=== PATIENT | female | born 1995 | race Caucasian/White ===

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

== ENCOUNTER 2017-09-18 17:53 | Emergency (ER) | payer BC, OTHER ==
[~2017-09-18] VITALS: Ht 160 cm; Wt 44.5 kg
[~2017-09-18 17:53] MED LIST changes: -LIDOCAINE HCL 2% 2 ML VIAL (20MG/ML) ONE; -MIDAZOLAM HCL 1 MG/ML 2ML VIAL ONE; -ONDA4TAB10 SL; -ONDANSETRON INJ 2 MG/ML 2 ML VIAL ONE; -PROPOFOL IV EMULSION 10 MG/ML 20 ML VIAL IV ONE; -SODIUM CHLORIDE 0.9% 500ML 500 ML IV ONE
[2017-09-18 17:56] VITALS: TEMP 37; Ht 160 cm; Wt 44.5 kg
[2017-09-18 19:23] LABS: BASO % 0.3 %; BASO ABS # 0.02 K/uL (0-0.2); EOS % 0.6 %; EOS ABS # 0.05 K/uL (0-0.5); HEMATOCRIT 41.7 % (37-47); IG# 0.01 K/uL (0.00-0.02); LYMPH % 28.3 %; LYMPH ABS # 2.21 K/uL (1.2-3.4); MEAN CELL VOLUME 90.7 fL (80-100); MEAN CORPUSCULAR HEMOGLOBIN 30.4 pg (25-34); MEAN CORPUSCULAR HGB CONC 33.6 g/dl (32-36); MEAN PLATELET VOLUME 10.1 fL (7.4-10.4); MONO % 4.9 %; MONO ABS # 0.38 K/uL (0.11-0.59); NEUT % 65.8 %; NEUT ABS # 5.14 K/uL (1.4-6.5); PLATELET COUNT 221 K/uL (130-400); RED CELL DISTRIBUTION WIDTH CV 12.3 % (11.5-14.5); RED CELL DISTRIBUTION WIDTH SD 40.8 fL (36.4-46.3); WHITE BLOOD COUNT 7.81 K/uL (4.8-10.8)
[2017-09-18 19:41] LABS: ALBUMIN 3.7 gm/dl (3.4-5.0); CALCIUM 8.9 mg/dl (8.5-10.1); CREATININE 0.83 mg/dl (0.60-1.20); POTASSIUM 3.6 mmol/L (3.5-5.1)
[2017-09-18 19:43] LABS: TOTAL PROTEIN 7.8 gm/dl (6.4-8.2)
[2017-09-18] MEDS ORDERED: SODIUM CHLORIDE 0.9% 1000ML 1,000 ML IV STA (19:46)
[2017-09-18] MEDS ORDERED: KETOROLAC TROMETHAMINE 30 MG/ML VIAL IV STA (19:46)
[2017-09-18] MEDS ORDERED: ONDANSETRON INJ 2 MG/ML 2 ML VIAL IV STA (19:46)
[2017-09-18] MEDS ORDERED: AZITHROMYCIN 250 MG TAB PO ONE (20:30)
[2017-09-18] MEDS ORDERED: CEFTRIAXONE SOD 350MG/ML 1 GM VIAL IM ONE (20:30)
[2017-09-18] MEDS ORDERED: METRONIDAZOLE 250 MG TAB PO STA (20:30)
[2017-09-18] MEDS ORDERED: ONDA4TAB46 PO (20:55)
[2017-09-18] MEDS ORDERED: BCPILLS PO (20:55)
[2017-09-18] MEDS ORDERED: METR-163 PO (21:45)
[2017-09-18] MEDS ORDERED: DOXY100C PO (21:45)
--- NOTE | 2017-09-18 21:48 | EMERGENCY ROOM VISIT NOTE ---
ED Visit Note First contact with patient: 19:35 CHIEF COMPLAINT: Pelvic pain HISTORY OF PRESENTING ILLNESS: This is a 22-year-old female who presents to the emergency department with complaint of pelvic pain for the past 1.5 -2 weeks. She states that her symptoms have been progressively worsening, and today she has been having severe pain. She states that the pain is constant, she describes it as cramping and sometimes sharp/stabbing, worse with some movements , better with rest, 6/10. She has not tried any medications for her pain. She has had associated dysuria, urinary frequency, and pelvic pressure, and has been noticing increased vaginal discharge for the past week. She denies any foul smelling odor or abnormal vaginal bleeding. Her last menstrual period was 3 weeks ago. She denies any associated fevers or chills, vomiting, diarrhea or constipation, chest pain, shortness of breath, syncope, headaches, or unusual rash. She denies any history of sexually transmitted infections, she states that she is monogamous with her boyfriend for the past 2 and half years. REVIEW OF SYSTEMS: A complete 10 point review of systems was reviewed with the patient with pertinent positives and negatives as per history of present illness. All else were negative. PAST MEDICAL HISTORY: Anxiety SOCIAL HISTORY: Lives at home. Denies tobacco use, alcohol or recreational drug use. ALLERGIES: Reviewed in chart. PHYSICAL EXAM: CONSTITUTIONAL: Pleasant and cooperative. No acute distress. Mildly dehydrated , but otherwise well appearing and well nourished. HEENT: Normocephalic, atraumatic. Pupils equal, round and reactive to light, EOMI. TMs normal. Pharynx normal. Tacky mucous membranes. NECK: Supple, full active range of motion without discomfort. No cervical adenopathy. RESPIRATORY: Clear to auscultation bilaterally with no wheezing, crackles, rhonchi or stridor. Equal expansion bilaterally. CARDIOVASCULAR: Regular rate and rhythm with no murmurs, rubs or gallops. Normal peripheral perfusion. No edema. GASTROINTESTINAL: Soft, significantly tender in the suprapubic and bilateral lower quadrants of the abdomen, nondistended. No rebound tenderness or guarding. No palpable masses or HSM. Bowel sounds present in all quadrants. No CVA tenderness. PELVIC EXAM: VULVA: No ulcers, vesicles or atrophy. VAGINA: Large amount of thick white/yellow discharge, no foul odor, no blood. CERVIX: Closed, os appears irritated and friable, positive cervical motion tenderness, yellow discharge from the os. UTERUS: Normal size, tender to palpation. ADNEXA: No masses or tenderness. A nurse was present as a paperhanger supervisor during the examination. MUSCULOSKELETAL: Full range of motion of all joints without discomfort. INTEGUMENTARY: No rash or other significant dermatologic conditions noted. NEUROLOGIC: Alert and oriented X 4 with normal affect. Normal strength and sensation in all 4 extremities. No focal neurologic deficits noted. Normal speech. Normal gait observed. ED COURSE AND MEDICAL DECISION MAKING: CC: Patient presenting with complaint of pelvic pain DIFFERENTIAL DIAGNOSIS: Includes, but not limited to gastroenteritis, appendicitis, mesenteric adenitis, diverticulitis, ovarian cyst, ovarian torsion , PID, sexually transmitted infections, BV, vaginal yeast infection, UTI, ectopic , among others. INTERPRETATION OF LABS: No leukocytosis, no anemia, no significant electrolyte abnormalities, normal renal function, normal liver enzymes and lipase. UA appears to be contaminated, urine negative. MEDICATION RECONCILIATION: I attest that I have personally reviewed the patient 's current medication list. INITIAL VITAL SIGNS REVIEW: I reviewed the patient's initial vital signs and interpret them as follows: T: Afebrile; BP: Hypertensive; HR: Tachycardic; RR : Within normal limits; Pulse Ox: Within normal limits on room air. Blood pressure screening: The patient was found to have an elevated blood pressure, which was felt to be situational. SUMMARY: Patient was evaluated at bedside, history and physical exam performed. Patient is alert and oriented, no acute distress, resting calmly in stretcher. Patient is significantly tender to palpation of the lower abdomen, especially in the suprapubic region. Pelvic exam was performed, noting a large amount of thick yellowish white discharge, cervical motion tenderness and uterine tenderness to palpation. Cervix is friable and began to bleed after cultures taken. Orders were placed at bedside for labs, UA and urine , cervical cultures including chlamydia, gonorrhea, Trichomonas, bacterial vaginosis, and yeast, IV fluids for hydration, IV Zofran for nausea, IV Toradol for pain. Patient discussed with Dr. Chisholm, who agrees with my assessment and plan. Labs reviewed as above, unremarkable. Patient was treated for suspected PID, with 1g PO azithromycin, IM Rocephin, and PO Flagyl, she has tolerated these medications well. Patient reassessed multiple times throughout ED stay, she reports that she is feeling improved overall, and the Toradol has helped with her pain. Patient was updated on all results and plan for discharge, she was encouraged to follow closely with her PCP and/or supervisor delivery department. Rx for doxycycline and Flagyl were sent to the pharmacy. Patient was also given strict return precautions should her symptoms worsen, she verbalized understanding. Patient was discharged home in stable condition and ambulatory. Current/Historical Medications Scheduled Control Pills ( Control Pills), 1 TAB PO DAILY Doxycycline Hyclate (Vibramycin), 100 MG PO BID Metronidazole (Flagyl), 500 MG PO BID Ondasetron Odt (Zofran Odt), 4 MG SL Q6H Scheduled PRN Lorazepam (Ativan), 0.5 MG PO TID PRN for Anxiety Ondansetron Hcl (Zofran), 4 MG PO Q8 PRN for Nausea Allergies Coded Allergies: Latex (Verified Adverse Reaction, Mild, rash, 09/18/17) swelling and rash when uses condoms Vital Signs Date Time Temp Pulse Resp B/P (MAP) Pulse Ox O2 Delivery O2 Flow Rate FiO2 09/18/17 22:39 66 20 113/62 99 09/18/17 21:45 68 20 114/67 99 Room Air 09/18/17 20:45 73 18 110/62 99 Room Air 09/18/17 19:41 82 18 115/68 100 09/18/17 17:56 37.0 111 20 140/76 100 Room Air Laboratory Results 09/18/17 19:05 Red Blood Count 4.60, Mean Corpuscular Volume 90.7, Mean Corpuscular Hemoglobin 30.4, Mean Corpuscular Hemoglobin Concent 33.6, Mean Platelet Volume 10.1, Neutrophils (%) (Auto) 65.8, Lymphocytes (%) (Auto) 28.3, Monocytes (%) (Auto) 4.9, Eosinophils (%) (Auto) 0.6, Basophils (%) (Auto) 0.3, Neutrophils # (Auto) 5.14, Lymphocytes # (Auto) 2.21, Monocytes # (Auto) 0.38, Eosinophils # (Auto) 0.05, Basophils # (Auto) 0.02 09/18/17 19:05 Test 09/18/17 19:05 09/18/17 20:10 09/18/17 20:30 White Blood Count 7.81 K/uL (4.8-10.8) Red Blood Count 4.60 M/uL (4.2-5.4) Hemoglobin 14.0 g/dL (12.0-16.0) Hematocrit 41.7 % (37-47) Mean Corpuscular Volume 90.7 fL (80-100) Mean Corpuscular Hemoglobin 30.4 pg (25-34) Mean Corpuscular Hemoglobin Concent 33.6 g/dl (32-36) Platelet Count 221 K/uL (130-400) Mean Platelet Volume 10.1 fL (7.4-10.4) Neutrophils (%) (Auto) 65.8 % Lymphocytes (%) (Auto) 28.3 % Monocytes (%) (Auto) 4.9 % Eosinophils (%) (Auto) 0.6 % Basophils (%) (Auto) 0.3 % Neutrophils # (Auto) 5.14 K/uL (1.4-6.5) Lymphocytes # (Auto) 2.21 K/uL (1.2-3.4) Monocytes # (Auto) 0.38 K/uL (0.11-0.59) Eosinophils # (Auto) 0.05 K/uL (0-0.5) Basophils # (Auto) 0.02 K/uL (0-0.2) RDW Standard Deviation 40.8 fL (36.4-46.3) RDW Coefficient of Variation 12.3 % (11.5-14.5) Immature Granulocyte % (Auto) 0.1 % Immature Granulocyte # (Auto) 0.01 K/uL (0.00-0.02) Anion Gap 6.0 mmol/L (3-11) Est Creatinine Clear Calc Drug Dose 76.0 ml/min Estimated GFR () 117.7 Estimated GFR (Non- 101.5 BUN/Creatinine Ratio 10.3 (10-20) Calcium Level 8.9 mg/dl (8.5-10.1) Total Bilirubin 0.3 mg/dl (0.2-1) Aspartate Amino Transf (AST/SGOT) 13 U/L (15-37) Alanine Aminotransferase (ALT/SGPT) 17 U/L (12-78) Alkaline Phosphatase 59 U/L (45-117) Total Protein 7.8 gm/dl (6.4-8.2) Albumin 3.7 gm/dl (3.4-5.0) Globulin 4.1 gm/dl (2.5-4.0) Albumin/Globulin Ratio 0.9 (0.9-2) Lipase 78 U/L (73-393) Urine Color DK YELLOW Urine Appearance CLOUDY (CLEAR) Urine pH 5.5 (4.5-7.5) Urine Specific [place] 1.025 (1.000-1.030) Urine Protein NEG (NEG) Urine Glucose (UA) NEG (NEG) Urine Ketones NEG (NEG) Urine Occult Blood NEG (NEG) Urine Nitrite NEG (NEG) Urine Bilirubin NEG (NEG) Urine Urobilinogen NEG (NEG) Urine Leukocyte Esterase NEG (NEG) Urine WBC (Auto) 1-5 /hpf (0-5) Urine RBC (Auto) 0-4 /hpf (0-4) Urine Hyaline Casts (Auto) 1-5 /lpf (0-5) Urine Epithelial Cells (Auto) 20-30 /lpf (0-5) Urine Bacteria (Auto) 1+ (NEG) Urine Test NEG (NEG) Date/Time Source Procedure Growth Status 09/18/17 20:30 Cervix Swab Trichomonas Preparation - Final Complete Medications Administered Medications (Trade) Dose Ordered Sig/Star Route Start Time Stop Time Status Last Admin Dose Admin Sodium Chloride 1,000 ml @ 999 mls/hr Q1H1M STAT IV 09/18/17 19:46 09/18/17 20:46 DC 09/18/17 19:46 999 MLS/HR Ketorolac Tromethamine (Toradol Inj) 15 mg NOW STAT IV 09/18/17 19:46 09/18/17 19:50 DC 09/18/17 20:06 15 MG Ondansetron HCl (Zofran Inj) 4 mg NOW STAT IV 09/18/17 19:46 09/18/17 19:50 DC 09/18/17 20:05 4 MG Azithromycin (Zithromax Tab) 1,000 mg NOW ONCE PO 09/18/17 20:30 09/18/17 20:33 DC 09/18/17 21:24 1,000 MG Ceftriaxone Sodium (Rocephin Im) 250 mg NOW ONCE IM 09/18/17 20:30 09/18/17 20:33 DC 09/18/17 21:24 250 MG Metronidazole (Flagyl Tab) 500 mg NOW STAT PO 09/18/17 20:30 09/18/17 20:33 DC 09/18/17 21:24 500 MG Departure Information Impression Primary Impression: PID (acute pelvic inflammatory disease) Dispostion Home / Self-Care Condition GOOD Prescriptions Ondasetron Odt (ZOFRAN ODT) 4 Mg Tab 4 MG SL Q6H for Nausea, #6 TAB Prov: Nettie Palacios, FABY 09/18/17 Doxycycline Hyclate (VIBRAMYCIN) 100 Mg Cap 100 MG PO BID for 14 Days, #28 CAP Prov: Nettie Palacios CRNP 09/18/17 Metronidazole (Flagyl) 500 Mg Tab 500 MG PO BID for Pain for 14 Days, #28 TAB For Initial Treatment Prov: Nettie Palacios CRNP 09/18/17 Referrals No Doctor, Assigned (PCP) Patient Instructions ED PID, [facility] Additional Instructions You have been treated in the Emergency Department for your pelvic pain. Laboratory results have ruled out any emergent causes for your symptoms which would warrant admission or surgery. It is suspected that you have pelvic inflammatory disease, which is most often caused by sexually transmitted infections such as chlamydia or gonorrhea. You have been tested for these infections, you will be called with abnormal results in the next 72 hours. Do not resume sexual intimacy until you have been fully treated and you know the results of your testing. You should encourage any sexual partners to also get tested and treated if need be, before resuming sexual intimacy with them. You were prescribed doxycycline and Flagyl to be taken twice a day for 14 days. These medications are antibiotics to treat your pelvic inflammatory disease. All antibiotics have the potential to cause diarrhea, please take a daily probiotic or eat yogurt every day to help avoid this. Stop this medication and contact a medical provider if you were to develop any significant adverse side effects including: wheezing, shortness of breath, passing out, vomiting, or a diffuse rash. Always take antibiotics as directed and COMPLETE the ENTIRE course regardless of the improvement of your symptoms. You have been prescribed Zofran to be used as needed for nausea/vomiting. Take as prescribed. For pain control, you can use the following [id number] medicines (if >12 yo): - Regular strength (325mg/tab) Tylenol (acetaminophen) 2 tabs every 4-6 hours as needed. Do not exceed 10 tablets in a 24 hour period. Avoid taking more than 3000 mg of Tylenol per day. This includes any other sources of acetaminophen you may take on a regular basis. - Regular strength (200 mg/tab) Advil (ibuprofen) 3 tabs every 6-8 hours as needed. Do not exceed a dose of 2400 mg per day. Drink plenty of fluids to stay well hydrated. Please follow-up with your Primary Care Provider in the next few days for a recheck of your symptoms. Return to the emergency department for severe worsening abdominal or back pain, worsening nausea/vomiting and unable to tolerate fluids, vomiting blood, blood in your stool or urine, fevers > 101.5, severe dizziness or passing out, or any other concerns. Work Instructions Return To Work: 2 days
[2017-09-18] MEDS ORDERED: ONDA4TAB10 SL (22:11)
[2017-09-18 22:39] VITALS: BP 113/62; PULSE 66; O2SAT 99
== END 2017-09-18 22:40 | disposition home or self-care (01) ==
LOC: C.EDB 17:54
DX: N73.0 Acute parametritis and pelvic cellulitis (principal); Z91.040 Latex allergy status